=== PATIENT | male | born 1980 | race African-American/Black ===

== ENCOUNTER 2016-08-25 10:26 | Emergency (ER) | payer OTHER ==
[~2016-08-25] VITALS: Ht 175.3 cm; Wt 65.9 kg
[~2016-08-25 10:26] MED LIST: BENADRYL25 MG PO; CLARITIN10 MG PO; DORZOLAMIDE HCL10 ML BOTH EYES; HYDROCODON-ACE1 EACH PO; LEXAPRO20 MG PO; MELOXICAM15 MG PO; MORPHINE SULFAT15 M1 PO; MS CONTIN,ORAMO15 M1 PO; NAPROSYN500 MG PO; OMEPRAZOLE40 M1 PO; OXYCODONE HCL5 MG PO; OXYCONTIN10 MG PO; PANTOPRAZOLE SO40 MG PO; PERCOCET 5/31 TABLET PO; PRED FORTE100 DROP/5 BOTH EYES; PREDNISONE IV; PREDNISONE20 MG; PREDNISONE20 MG PO; ROXICODONE5 MG PO; SENNA PLUS TAB1 EACH PO; TRAZODONE HCL50 MG PO; XANAX0.5 MG PO; XARELTO10 MG PO; ZOFRAN ODT4 MG PO; ZOFRAN4 MG PO; [UNRECOGNIZED DRUG - CODE] IM; [UNRECOGNIZED DRUG - CODE] SC
[2016-08-25] MEDS ORDERED: BACLOFEN10 MG PO (13:57)
[2016-08-25] MEDS ORDERED: LIDODERM 5% P1 PATCH TD (13:57)
[2016-08-25 14:31] VITALS: BP 98/69
== END 2016-08-25 14:32 | disposition home or self-care (01) ==
LOC: EME 10:26
DX: M25.552 Pain in left hip (principal); G89.29 Other chronic pain; S46.812A Strain of other muscles, fascia and tendons at shoulder and upper arm level, left arm, initial encounter; X58.XXXA Exposure to other specified factors, initial encounter; M87.9 Osteonecrosis, unspecified; F11.20 Opioid dependence, uncomplicated; R60.0 Localized edema; M79.605 Pain in left leg; Z87.891 Personal history of nicotine dependence
CPT/HCPCS: 99281; 99283

== ENCOUNTER 2016-10-05 22:06 | Inpatient (IN) | payer OTHER ==
[~2016-10-05] VITALS: Ht 175.3 cm; Wt 62.0 kg
[~2016-10-05 22:06] MED LIST changes: +BACLOFEN10 MG PO; +IRON325 M1 PO; +LIDODERM 5% P1 PATCH TD; +MS CONTIN,ORAMO30 MG PO; +OXYCODONE HCL10 MG PO
[2016-10-06 06:18] VITALS: BP 111/62
[2016-10-06 06:52] LABS: INTER. NORMALIZED RATIO 1.1; PROTHROMBIN TIME 11.9 SEC (10.2-12.9)
[2016-10-06 06:55] LABS: PTT 36.4 SEC (25-37)
[2016-10-06 10:11] LABS: HEMATOCRIT 35.3 % (38.0-50.0); MCV 85.1 FL (86-99)
[2016-10-06 11:34] VITALS: BP 140/76
[2016-10-06 13:00] VITALS: BP 146/76
[2016-10-06 16:08] VITALS: BP 124/71
[2016-10-06 20:14] VITALS: BP 152/85
[2016-10-06 23:53] VITALS: BP 126/61
[2016-10-07 04:23] VITALS: BP 138/66
[2016-10-07 06:14] LABS: HEMATOCRIT 29.1 % (38.0-50.0); MCV 82.7 FL (86-99)
[2016-10-07 08:12] VITALS: BP 126/75
[2016-10-07 12:00] VITALS: BP 123/82
[2016-10-07 15:41] VITALS: BP 125/77
[2016-10-07 19:54] VITALS: BP 134/71
[2016-10-08 00:25] VITALS: BP 137/86
[2016-10-08 03:30] VITALS: BP 130/80
[2016-10-08 08:06] VITALS: BP 133/73
[2016-10-08] MEDS ORDERED: OXYCODONE HCL5 MG PO (08:58)
[2016-10-08] MEDS ORDERED: ELIQUIS2.5 MG PO (08:58)
[2016-10-08 11:00] VITALS: BP 138/74
== END 2016-10-08 11:15 | disposition home health service (06) | DRG 470 ==
LOC: ENRESERV 22:06 → 3WEST 10-06 05:54 → 2SOUTH 10-06 05:54 → 3WEST 10-06 11:02 → 2SOUTH 10-06 11:51 → 3WEST 10-08 11:15
PROVIDERS: Orthopaedic Surgery
PROC: 0SRB03Z Replacement of Left Hip Joint with Ceramic Synthetic Substitute, Open Approach (ICD-10-PCS; principal; 2016-10-06)
DX: M87.052 Idiopathic aseptic necrosis of left femur (principal); G89.29 Other chronic pain; G43.909 Migraine, unspecified, not intractable, without status migrainosus; K21.9 Gastro-esophageal reflux disease without esophagitis; Z87.891 Personal history of nicotine dependence
CPT/HCPCS: 85014; 85018; 85610; 85730; 97530 GP; J0131; J0690; J1100; J1170; J1885; J2250; J2405; J3010; J7050; J7120; S0020